=== PATIENT | female | born 1960 | race Caucasian/White ===

== ENCOUNTER 2019-04-09 11:08 | Outpatient (CLI) | payer OTHER ==
--- NOTE | 2019-04-18 08:02 | Mammography Report ---
Reason: SCREENING MAMMO Procedure Date: 04/09/2019 Accession Number: [id number] / [id number] Procedure: MGS - Screening Mammo Dig Bilat CPT Code: Final Report FULL RESULT: EXAM: Screening Mammo Dig Bilat DATE: 04/09/2019 11:31 AM CLINICAL HISTORY: Screening encounter. History of nulliparity. TECHNIQUE: (B) - Bilateral CC and MLO views were obtained. Right laterally exaggerated CC views obtained. COMPARISON: 10/12/2015 through 09/23/2011. PARENCHYMAL PATTERN: (D) - The breast(s) demonstrate(s) heterogeneously dense fibroglandular parenchyma. FINDINGS: There are no suspicious masses, calcifications, or areas of distortion. IMPRESSION: Negative examination. BI-RADS category 1. RECOMMENDATION: (ANNUAL) - Recommend routine annual screening mammography. BI-RADS CATEGORY: (1) - Negative. STANDARD QUALIFYING STATEMENTS: 1. This examination was reviewed with the aid of Computer-Aided Detection (CAD). 2. A negative or benign imaging report should not preclude biopsy if clinically suspicious findings are present. 3. Dense breasts may obscure an underlying neoplasm. 4. This examination was reviewed without the aid of 3D breast imaging (tomosynthesis).
== END 2019-04-09 11:09 | disposition home or self-care (01) ==
LOC: DI.S 11:08
DX: Z12.31 Encounter for screening mammogram for malignant neoplasm of breast (principal)
CPT/HCPCS: 77067

== ENCOUNTER 2022-01-03 08:24 | Outpatient (CLI) | payer BC, OTHER ==
--- NOTE | 2022-01-03 13:09 | Mammography Report ---
BILATERAL DIGITAL SCREENING MAMMOGRAM 3D/2D: 01/03/2022 CLINICAL: Routine screening. Comparison is made to exams dated: 04/09/2019 mammogram - [facility] and 10/12/2015 m ammogram - [facility]. Both breasts are heterogeneously dense, which may obscure small masses (category c / 51-75% glandula r tissue). No significant masses, calcifications, or other findings are seen in either breast. There has been no significant interval change. IMPRESSION: NEGATIVE There is no mammographic evidence of malignancy. A 1 year screening mammogram is recommended. Based on the Tyrer Cuzick model (a risk assessment model) the patients lifetime risk is 8.5% and her 10 year risk is 3.8%. According to the ACR, ACS, and NCCN guidelines, an annual breast MRI exam kathryn g with mammogram is recommended if the patients lifetime risk is 20% or greater. This exam was interpreted at Station ID: [id number]. NOTE: For mammograms, a report in lay terms will be sent to the patient. Approximately 15% of breast malignancies will not be visualized mammographically. In the management of a palpable breast mass, a negative mammogram must not discourage biopsy of a clinically suspicious lesion. Electronically Signed By: Domenic james/karyna:01/03/2022 09:14:20 ACR BI-RADS Category 1: Negative 3341F PARENCHYMAL PATTERN: (D) - The breast(s) demonstrate(s) heterogeneously dense fibroglandular amalia moody. BI-RADS CATEGORY: (1) - 1 RECOMMENDATION: (ANNUAL) - Recommend routine annual screening mammography. [id number] 1 year screening LATERALITY: (B)
== END 2022-01-03 08:25 | disposition home or self-care (01) ==
LOC: DI.S 08:24
PROVIDERS: ATTEND Registered Nurse
DX: Z12.31 Encounter for screening mammogram for malignant neoplasm of breast (principal)

== ENCOUNTER 2023-11-27 09:45 | Outpatient (CLI) | payer MEDICARE, OTHER ==
--- NOTE | 2023-11-28 11:53 | Mammography Report ---
BILATERAL DIGITAL SCREENING MAMMOGRAM 3D/2D: 11/27/2023 CLINICAL: Routine screening. Comparison is made to exams dated: 01/03/2022 mammogram, 04/09/2019 mammogram - [facility], and 10/12/2015 mammogram - [facility]. Both breasts are heterogeneously dense, which may obscure small masses (category c / 51-75% glandular tissue). No significant masses, calcifications, or other findings are seen in either breast. There has been no significant interval change. IMPRESSION: NEGATIVE There is no mammographic evidence of malignancy. A 1 year screening mammogram is recommended. Based on the Tyrer Cuzick model (a risk assessment model) the patient's lifetime risk is 8.4% and her 10 year risk is 4.1%. According to the ACR, ACS, and NCCN guidelines, an annual breast MRI exam kathryn g with mammogram is recommended if the patient's lifetime risk is 20% or greater. This exam was interpreted at Station ID: [id number]. NOTE: For mammograms, a report in lay terms will be sent to the patient. Approximately 15% of breast malignancies will not be visualized mammographically. In the management of a palpable breast mass, a negative mammogram must not discourage biopsy of a clinically suspicious lesion. Electronically Signed By: Roe de la cruz/karyna:11/28/2023 10:05:02 letter sent: No_Letter ACR BI-RADS Category 1: Negative 3341F PARENCHYMAL PATTERN: (D) - The breast(s) demonstrate(s) heterogeneously dense fibroglandular amalia moody. BI-RADS CATEGORY: (1) - 1 RECOMMENDATION: (ANNUAL) - Recommend routine annual screening mammography. [id number] 1 year screening LATERALITY: (B)
== END 2023-11-27 09:46 | disposition home or self-care (01) ==
LOC: DI.S 09:45
PROVIDERS: ATTEND Registered Nurse
DX: Z12.31 Encounter for screening mammogram for malignant neoplasm of breast (principal); R92.333 Mammographic heterogeneous density, bilateral breasts

== ENCOUNTER 2024-01-04 14:33 | Outpatient (CLI) | payer MEDICARE, OTHER ==
[2024-01-04 14:43] LABS: BASOPHILS # (AUTO) 0.1 10^3/uL (0.0-0.1); BASOPHILS % (AUTO) 0.5 %; EOSINOPHILS # (AUTO) 0.2 10^3/uL (0.0-0.7); EOSINOPHILS % (AUTO) 1.9 %; HCT - HEMATOCRIT 44.9 % (37.0-47.0); HGB - HEMOGLOBIN 14.5 g/dL (12.0-16.0); LYMPHOCYTES # (AUTO) 2.2 10^3/uL (1.5-3.5); LYMPHOCYTES % (AUTO) 19.5 %; MEAN CORPUSCULAR HEMOGLOBIN 31.5 pg (27.0-31.0); MEAN CORPUSCULAR HGB CONC 32.3 g/dL (32.0-36.0); MEAN CORPUSCULAR VOLUME 97.4 fL (81.0-99.0); MEAN PLATELET VOLUME 10.7 fL (7.9-10.8); MONOCYTES # (AUTO) 0.5 10^3/uL (0.0-1.0); MONOCYTES % (AUTO) 4.5 %; NEUTROPHILS # (AUTO) 8.1 10^3/uL (1.5-6.6); NEUTROPHILS % (AUTO) 73.3 %; PLT - PLATELET COUNT 300 10^3/uL (130-450); RED BLOOD COUNT 4.61 10^6/uL (4.20-5.40)
--- NOTE | 2024-01-04 14:59 | XRAY Report ---
PROCEDURE: Chest 2V INDICATIONS: DYSPNEA ON EXERTION TECHNIQUE: 2 views of the chest were acquired. COMPARISON: None. FINDINGS: Surgical changes and devices: None. Lungs and pleura: Moderate to severe diffuse lung disease particularly in the lower lungs. There is a nodular pattern. Mediastinum: Heart size Bones and chest wall: Unremarkable IMPRESSION: Diffuse lung disease in a nodular pattern, moderate to severe in the mid and lower lungs. This may re present pneumonia versus disseminated metastases or miliary spread of infection. Reviewed by: Oleg Soto MD on 01/04/2024 2:58 PM PDT Approved by: Oleg Soto MD on 01/04/2024 2:58 PM PDT Station ID: [id number]
== END 2024-01-04 14:34 | disposition home or self-care (01) ==
LOC: LAB 14:33
PROVIDERS: ATTEND Registered Nurse
DX: J98.4 Other disorders of lung (principal)
CPT/HCPCS: 36415; 85025; 85379

== ENCOUNTER 2024-01-12 08:35 | Outpatient (CLI) | payer MEDICARE, OTHER ==
[2024-01-12] MEDS ORDERED: iohexoL-300 100 ML VIAL ONE (08:41)
[2024-01-12] MEDS: iohexoL-300 100 ML VIAL IVP ONE (14:10)
--- NOTE | 2024-01-12 15:53 | CT Report ---
PROCEDURE: Chest W INDICATIONS: ABN CHEST XRAY CONTRAST: omni 300, 100 TECHNIQUE: After the administration of intravenous contrast, a CT scan of the chest was performed. Images were recorded and evaluated at appropriate window settings. Reformats: axial MIP of the chest, coronal and sagittal. For radiation dose reduction, the following was used: automated exposure control, adjustme nt of mA and/or kV according to patient size. COMPARISON: 01/04/2024 radiograph FINDINGS: Image quality: Diagnostic Lungs and pleura:Diffuse, innumerable nodules in both lungs Focal mass is seen along the left-sided fissure measuring 6.2 x 4.2 cm, with bronchial spread and robert rowing. No drainable effusions Mediastinum, heart, and esophagus: Normal heart size. Prominent mediastinal lymph nodes are present, though not enlarged by CT size criteria, for example precarinal node measures 7 mm in short axis II/X XXVI Chest wall and thyroid: Bilateral thyroid nodules, measuring up to 1.5 cm on the left. Unremarkable chest wall Upper abdomen: Scattered liver cysts. No gross abnormality in the partially visualized upper abdomen Bones: Degenerative changes. No focal suspicious osseous lesion IMPRESSION: Mass centered at the left pulmonary fissure is likely a primary lung cancer. This appears to involve the adjacent airways. This is amenable to CT-guided percutaneous biopsy if necessary. Innumerable bilateral pulmonary nodules, favored to represent metastases. Differential includes milia ry spread of infection. This study was marked in PACS for communication and follow-up. Reviewed by: Oleg Soto MD on 01/12/2024 3:52 PM PDT Approved by: Oleg Soto MD on 01/12/2024 3:52 PM PDT Station ID: [id number]
== END 2024-01-12 08:36 | disposition home or self-care (01) ==
LOC: DI 08:35
PROVIDERS: ATTEND Registered Nurse
DX: R91.8 Other nonspecific abnormal finding of lung field (principal)
CPT/HCPCS: 71260; Q9967